=== PATIENT | female | born 1955 | race Caucasian/White ===

== ENCOUNTER 2020-05-08 16:51 | Emergency (ER) | payer MEDICARE ==
[2020-05-08] MEDS ORDERED: Sodium Chloride 0.9% 1000 ML 1,000 ML IV SCH (17:15)
[2020-05-08] MEDS ORDERED: Sodium Chloride 0.9% 1000 ML 1,000 ML ONE (17:22)
--- NOTE | 2020-05-08 17:31 | ERPHSYRPT ---
- History of Present Illness Time Seen by Provider: 05/08/20 17:05 Historian: patient Exam Limitations: no limitations Patient Subjective Stated Complaint: pt to ER with complaints of weakness, cough, possible dehydration because of flakey skin, abdominal pain once a day-s harp pain, x [address] varner office yesterday and was told to come to ER. Triage Nursing Assessment: pt A&Ox4. to ER in wheelchair. pt tearful. pt skin pwd. Physician History: Patient is a 64-year-old female presents to our ED with complaints of generalized weakness, possible dehydration cough and sharp intermittent periumbilical abdominal pain. Patient has been experiencing intermittent abdominal pain for 2 years. However pain is been constant over the past 3 weeks. She has not seen anybody due to cost of healthcare. Patient called her primary care doctor's office, Dr. Varner who advised patient to come to our ED for an evaluation. No associated fever. No trauma. No vomiting. No diarrhea. No rash. Symptoms are moderate in intensity. No specific worsening or improving factors. Patient voices no other complaints or concerns at this time. Timing/Duration: week(s) (We weeks) Activities at Onset: none Quality: cramping Abdominal Pain Onset Location: periumbilical Pain Radiation: no radiation Severity of Pain-Max: moderate Severity of Pain-Current: mild Modifying Factors: Improves With: nothing Associated Symptoms: loss of appetite, nausea, No diaphoresis, No diarrhea, No fever/chills, No headache, No neck pain, No shortness of breath, No vomiting Previous symptoms: no prior history Allergies/Adverse Reactions: No Known Drug Allergies Allergy (Unverified 05/08/20 17:14) Home Medications: Gabapentin 600 mg PO TID 05/08/20 [History] Hydrocodone Bit/Acetaminophen [Tenmile 10-325 Tablet] 1 tab PO TID 05/08/20 [History] Ropinirole HCl 0.5 mg [Requip 0.5 MG] 1 tab PO BID 05/08/20 [History] clonazePAM [Klonopin] 1 tab PO TID 05/08/20 [History] Hx Tetanus, Diphtheria Vaccination/Date Given: No Hx Influenza Vaccination/Date Given: No Hx Pneumococcal Vaccination/Date Given: No Immunizations Up to Date: Yes Travel Risk - International Travel Have you traveled outside of the country in past 3 weeks: No - Coronavirus Screening Are you exhibiting any of the following symptoms?: No Close contact with a COVID-19 positive Pt in past 14-21 Days: No - Review of Systems Constitutional: No Symptoms, No Fever, No Chills Eyes: No Symptoms Ears, Nose, & Throat: No Symptoms Respiratory: No Symptoms, No Cough, No Dyspnea Cardiac: No Symptoms, No Chest Pain, No Edema, No Syncope Abdominal/Gastrointestinal: No Symptoms, No Abdominal Pain, No Nausea, No Vomiting, No Diarrhea Genitourinary Symptoms: No Symptoms, No Dysuria Musculoskeletal: No Symptoms, No Back Pain, No Neck Pain Skin: No Symptoms, No Rash Neurological: No Symptoms, No Dizziness, No Focal Weakness, No Sensory Changes Psychological: No Symptoms Endocrine: No Symptoms Hematologic/Lymphatic: No Symptoms Immunological/Allergic: No Symptoms All Other Systems: Reviewed and Negative - Past Medical History Pertinent Past Medical History: Yes Cardiac History: Hypertension Respiratory History: COPD GI Medical History: Diverticulitis Psycho-Social History: Anxiety, Depression - Past Surgical History Past Surgical History: Yes Musculoskeletal: Orthopedic Surgery Female Surgical History: Hysterectomy - Social History Smoking Status: Current every day smoker How long have you smoked: 30 years Exposure to second hand smoke: Yes Drug Use: none Patient Lives Alone: No - Female History Hx Now: No - Nursing Vital Signs Nursing Vital Signs: Initial Vital Signs Temperature 98.1 F 05/08/20 17:01 Pulse Rate 115 H 05/08/20 17:01 Respiratory Rate 18 05/08/20 17:01 Blood Pressure 159/100 05/08/20 17:01 O2 Sat by Pulse Oximetry 96 05/08/20 17:01 Pain Scale Pain Intensity 0 - Physical Exam General Appearance: no apparent distress, alert Eye Exam: PERRL/EOMI, eyes nml inspection Ears, Nose, Throat Exam: normal ENT inspection, pharynx normal, moist mucous membranes Neck Exam: normal inspection, non-tender, supple, full range of motion Respiratory Exam: normal breath sounds, lungs clear, No respiratory distress Cardiovascular Exam: regular rate/rhythm, normal heart sounds Gastrointestinal/Abdomen Exam: soft, tenderness (Mild periumbilical tenderness.), No mass, No guarding, No pulsatile mass, No rebound, No organomegaly Back Exam: normal inspection, normal range of motion, No CVA tenderness, No vertebral tenderness Extremity Exam: normal inspection, normal range of motion, pelvis stable Neurologic Exam: alert, oriented x 3, cooperative, normal mood/affect, nml cerebellar function, sensation nml, No motor deficits Skin Exam: normal color, warm, dry SpO2 Interpretation: normal SpO2: 96 O2 Delivery: Room Air - Course Nursing assessment & vital signs reviewed: Yes EKG Interpreted by Me: RATE ([id number]), Sinus Rhythm, NORMAL AXIS, NORMAL INTERVALS - Radiology Exams Chest X-ray Interpretation: Interpreted by me (No infiltrate or consolidation. No pneumothorax. No pleural effusion. Normal bony thorax. Normal cardiac silhouette. Negative chest x-ray.) Ordered Tests: Active Orders 24 hr Category Date Time Status Banana Loader STAT Care 05/08/20 18:50 Active EKG-ER Only STAT Care 05/08/20 17:18 Active IV Insertion STAT Care 05/08/20 17:15 Active POCT Glucose Check STAT Care 05/08/20 17:18 Active ABDOMEN AND PELVIS W CONTRAST [CT] Stat Exams 05/08/20 17:15 Taken CHEST 1 VIEW (PORTABLE) Stat Exams 05/08/20 17:32 Taken CBC W DIFF Stat Lab 05/08/20 17:30 Completed CMP Stat Lab 05/08/20 17:30 Completed LIPASE Stat Lab 05/08/20 17:30 Completed MAGNESIUM Stat Lab 05/08/20 18:00 Completed POCT GLUCOSE Stat Lab 05/08/20 17:15 Completed TROPONIN Q3H Lab 05/08/20 17:30 Completed TROPONIN Q3H Lab 05/08/20 20:15 Ordered TROPONIN Q3H Lab 05/08/20 23:15 Ordered TROPONIN Q3H Lab 05/09/20 02:15 Ordered TROPONIN Q3H Lab 05/09/20 05:15 Ordered UA W/RFX UR CULTURE Stat Lab 05/08/20 18:00 Completed Medication Summary Generic Name Dose Route Start Last Admin Trade Name Freq PRN Reason Stop Dose Admin Sodium Chloride 1,000 mls @ 100 mls/hr 05/08/20 17:15 05/08/20 17:23 Sodium Chloride 0.9% 1000 Ml IV 06/07/20 17:14 100 mls/hr .Q10H KIM Administration Discontinued Medications Generic Name Dose Route Start Last Admin Trade Name Freq PRN Reason Stop Dose Admin Potassium Chloride 40 meq 05/08/20 18:27 05/08/20 19:36 Klor Con 10 Meq PO 05/08/20 18:28 40 meq STAT ONE Administration Potassium Chloride Confirm 05/08/20 19:35 Klor Con 10 Meq Administered 05/08/20 19:36 Dose 40 meq PO .STK-MED ONE Lab/Rad Data: Laboratory Result Diagrams 05/08/20 17:30 05/08/20 17:30 Laboratory Results 05/08/20 05/08/20 05/08/20 Range/Units 18:00 18:00 17:30 WBC (4.0-10.5) K/mm3 RBC (4.1-5.4) M/mm3 Hgb (12.0-16.0) gm/dl Hct (35-47) % MCV (78-100) fl MCH (26-32) pg MCHC (32-36) g/dl RDW (11.5-14.0) % Plt Count (150-450) K/mm3 MPV (7.5-11.0) fl Gran % (36.0-66.0) % Eos # (Auto) (0-0.5) Absolute Lymphs (auto) (1.0-4.6) Absolute Monos (auto) (0.0-1.3) Lymphocytes % (24.0-44.0) % Monocytes % (0.0-12.0) % Eosinophils % (0.00-5.0) % Basophils % (0.0-0.4) % Absolute Granulocytes (1.4-6.9) Basophils # (0-0.4) Sodium 132 L (137-145) mmol/L Potassium 2.9 L* (3.5-5.1) mmol/L Chloride 95 L (98-107) mmol/L Carbon Dioxide 28 (22-30) mmol/L Anion Gap 11.6 (5-15) MEQ/L BUN 5 L (7-17) mg/dL Creatinine 0.63 (0.52-1.04) mg/dL Estimated GFR > 60.0 ML/MIN Glucose 167 H (74-106) mg/dL POC Glucometer (74 to 106) mg/dL Calcium 9.5 (8.4-10.2) mg/dL Magnesium 2.0 (1.6-2.3) mg/dL Total Bilirubin 0.60 (0.2-1.3) mg/dL AST 30 (14-36) U/L ALT 19 (0-35) U/L Alkaline Phosphatase 75 (38-126) U/L Troponin I (0.000-0.034) ng/mL Serum Total Protein 7.8 (6.3-8.2) g/dL Albumin 4.1 (3.5-5.0) g/dL Lipase 53 (23-300) U/L Urine Color YELLOW (YELLOW) Urine Appearance CLEAR (CLEAR) Urine pH 6.0 (5-6) Ur Specific [place] 1.004 (1.005-1.025) Urine Protein NEGATIVE (Negative) Urine Ketones NEGATIVE (NEGATIVE) Urine Blood SMALL (0-5) Alan/ul Urine Nitrite NEGATIVE (NEGATIVE) Urine Bilirubin NEGATIVE (NEGATIVE) Urine Urobilinogen NEGATIVE (0-1) mg/dL Ur Leukocyte Esterase NEGATIVE (NEGATIVE) Urine WBC (Auto) 3-5 (0-5) /HPF Urine RBC (Auto) NONE (0-2) /HPF U Epithel Cells (Auto) NONE (FEW) /HPF Urine Bacteria (Auto) NONE SEEN (NEGATIVE) /HPF Urine Mucus (Auto) SLIGHT (NEGATIVE) /HPF Urine Culture Reflexed NO (NO) Urine Glucose NEGATIVE (NEGATIVE) mg/dL 05/08/20 05/08/20 05/08/20 Range/Units 17:30 17:30 17:15 WBC 7.2 (4.0-10.5) K/mm3 RBC 4.62 (4.1-5.4) M/mm3 Hgb 13.9 (12.0-16.0) gm/dl Hct 41.3 (35-47) % MCV 89.4 (78-100) fl MCH 30.1 (26-32) pg MCHC 33.7 (32-36) g/dl RDW 13.3 (11.5-14.0) % Plt Count 285 (150-450) K/mm3 MPV 10.2 (7.5-11.0) fl Gran % 48.7 (36.0-66.0) % Eos # (Auto) 0.48 (0-0.5) Absolute Lymphs (auto) 2.57 (1.0-4.6) Absolute Monos (auto) 0.62 (0.0-1.3) Lymphocytes % 35.5 (24.0-44.0) % Monocytes % 8.6 (0.0-12.0) % Eosinophils % 6.6 H (0.00-5.0) % Basophils % 0.6 (0.0-0.4) % Absolute Granulocytes 3.52 (1.4-6.9) Basophils # 0.04 (0-0.4) Sodium (137-145) mmol/L Potassium (3.5-5.1) mmol/L Chloride (98-107) mmol/L Carbon Dioxide (22-30) mmol/L Anion Gap (5-15) MEQ/L BUN (7-17) mg/dL Creatinine (0.52-1.04) mg/dL Estimated GFR ML/MIN Glucose (74-106) mg/dL POC Glucometer 161 H (74 to 106) mg/dL Calcium (8.4-10.2) mg/dL Magnesium (1.6-2.3) mg/dL Total Bilirubin (0.2-1.3) mg/dL AST (14-36) U/L ALT (0-35) U/L Alkaline Phosphatase (38-126) U/L Troponin I < 0.012 (0.000-0.034) ng/mL Serum Total Protein (6.3-8.2) g/dL Albumin (3.5-5.0) g/dL Lipase (23-300) U/L Urine Color (YELLOW) Urine Appearance (CLEAR) Urine pH (5-6) Ur Specific [place] (1.005-1.025) Urine Protein (Negative) Urine Ketones (NEGATIVE) Urine Blood (0-5) Alan/ul Urine Nitrite (NEGATIVE) Urine Bilirubin (NEGATIVE) Urine Urobilinogen (0-1) mg/dL Ur Leukocyte Esterase (NEGATIVE) Urine WBC (Auto) (0-5) /HPF Urine RBC (Auto) (0-2) /HPF U Epithel Cells (Auto) (FEW) /HPF Urine Bacteria (Auto) (NEGATIVE) /HPF Urine Mucus (Auto) (NEGATIVE) /HPF Urine Culture Reflexed (NO) Urine Glucose (NEGATIVE) mg/dL - Progress Progress: improved Progress Note: 05/08/20 20:[address] Varner who feels patient will require a urologist. We considered admitting patient here and arranging urology follow-up as an outpatient however patient has a high likelihood of being hostile follow-up. Charly young states that she does not have the funds to see doctors so she chooses not to visit with her doctors. We will transfer patient to [facility]. Case discussed with who accepts transfer and will arrange for urology consultation. Plan of care discussed with patient. She agrees to transfer to [facility] for further evaluation and treatment. Discussed with Dr.: Pam Will see patient in: other (Case discussed with Dr. Varner. Patient will require urology and probably a cystoscopy. Per Dr. Varner we will transfer patient for urology services.) Counseled pt/family regarding: lab results, diagnosis, need for follow-up, rad results, smoking cessation - Departure Departure Disposition: Home Clinical Impression: Tachycardia, Hypokalemia, Hematuria, Bladder mass, Gallstones, Hepatomegaly, Hepatic cyst, Splenomegaly, Diverticulosis, Generalized weakness Condition: Stable Critical Care Time: No Referrals: DOCTOR,NO FAMILY [Primary Care Provider] -
[2020-05-08 18:03] LABS: Absolute Neutrophil Ct (ANC) 3.52 (1.4-6.9); BASOPHIL % 0.6 % (0.0-0.4); Basophil (Absolute #) 0.04 (0-0.4); Eosinophil % 6.6 % (0.00-5.0); Eosinophil (Absolute #) 0.48 (0-0.5); Hematocrit 41.3 % (35-47); Hemoglobin 13.9 gm/dl (12.0-16.0); Lymphocyte (Absolute #) 2.57 (1.0-4.6); Lymphocytes % 35.5 % (24.0-44.0); Mean Cell Volume 89.4 fl (78-100); Mean Corpuscular Hemoglobin 30.1 pg (26-32); Mean Corpuscular Hgb Concent. 33.7 g/dl (32-36); Mean Platelet Volume 10.2 fl (7.5-11.0); Monocyte (Absolute #) 0.62 (0.0-1.3); Monocytes % 8.6 % (0.0-12.0); Neutrophil % 48.7 % (36.0-66.0); Platelet Count 285 K/mm3 (150-450); Red Blood Count 4.62 M/mm3 (4.1-5.4); Red Cell Distribution Width 13.3 % (11.5-14.0); White Blood Count 7.2 K/mm3 (4.0-10.5)
[2020-05-08 18:14] LABS: ALBUMIN 4.1 g/dL (3.5-5.0); ALKALINE PHOSPHATASE 75 U/L (38-126); ANION GAP 11.6 MEQ/L (5-15); BLOOD UREA NITROGEN 5 mg/dL (7-17); CHLORIDE 95 mmol/L (98-107); Calcium 9.5 mg/dL (8.4-10.2); Carbon Dioxide 28 mmol/L (22-30); Creatinine 1 0.63 mg/dL (0.52-1.04); EST GLOMERULAR FILTRATION RATE > 60.0 ML/MIN; Glucose 167 mg/dL (74-106); LIPASE 53 U/L (23-300); SGOT/AST 30 U/L (14-36); SGPT/ALT 19 U/L (0-35); SODIUM 132 mmol/L (137-145); Total Protein 7.8 g/dL (6.3-8.2)
[2020-05-08 18:17] LABS: Appearance CLEAR (CLEAR); Bilirubin NEGATIVE (NEGATIVE); Blood SMALL Ery/ul (0-5); Glucose NEGATIVE (NEGATIVE); Ketones NEGATIVE (NEGATIVE); Leukocyte Esterase NEGATIVE (NEGATIVE); Mucus SLIGHT /HPF (NEGATIVE); Nitrite NEGATIVE (NEGATIVE); Protein,Urine Dip NEGATIVE (Negative); Specific Gravity 1.004 (1.005-1.025); Urobilinogen NEGATIVE mg/dL (0-1)
[2020-05-08 18:19] LABS: Potassium 2.9 mmol/L (3.5-5.1)
[2020-05-08 18:20] LABS: Bacteria NONE SEEN /HPF (NEGATIVE)
[2020-05-08] MEDS ORDERED: Klor Con 10 MEQ PO ONE ×2 (18:27→19:35)
[2020-05-08 19:53] VITALS: BP 171/87; PULSE 96
[2020-05-08 20:14] VITALS: O2SAT 96
--- NOTE | 2020-05-09 08:47 | XRAY ---
Indication: Abdomen pain and nausea. Multiple contiguous axial images obtained through the abdomen and pelvis using 80 cc Isovue 370 contrast only. Comparison: None Lung bases demonstrates mild bibasilar dependent atelectasis and tiny right costophrenic angle calcified granuloma. Heart is not enlarged. Noncontrasted stomach and bowel loops appear nonobstructed. Normal appendix. Minimal sigmoid diverticulosis. No free fluid/air. Two 1.5 cm gallstones. Mild fatty hepatomegaly measuring 20.8 cm with a 1.4 cm left lobe cyst. 16.7 cm splenomegaly. A few hepatic/splenic calcified granulomas. Both kidneys enhance and excrete. Posterior left urinary bladder demonstrates a 1 cm soft tissue mass. Remaining pancreas, adrenal glands, kidneys, and ureters appear unremarkable. Mild scattered aortoiliac calcifications without AAA. No pathologic retroperitoneal lymphadenopathy. Osseous structures intact with mild/moderate degenerative changes throughout the lumbar spine. Impression: 1. 1 cm urinary bladder or soft tissue mass. Malignancy is a primary concern. Direct cystoscopy may yield further information. 2. Cholelithiasis. Gallbladder sonogram may yield further information. 3. Incidental fatty hepatomegaly, hepatic cyst, splenomegaly, and old granulomatous disease.
--- NOTE | 2020-05-09 08:48 | XRAY ---
Indication: Abdomen pain and fatigue. Comparison: None Portable chest demonstrates normal heart and lungs with tiny right costophrenic angle calcified granuloma. Bony thorax intact with mild osteopenia, minimal degenerative changes, and minimal dextroscoliosis. Impression: Nonacute chest with chronic features.
== END 2020-05-08 20:16 | disposition short-term general hospital (02) ==
LOC: ED 16:51
DX: R00.0 Tachycardia, unspecified (principal); E87.6 Hypokalemia; R31.9 Hematuria, unspecified; N32.9 Bladder disorder, unspecified; K80.80 Other cholelithiasis without obstruction; B27.99 Infectious mononucleosis, unspecified with other complication; K76.89 Other specified diseases of liver; R16.1 Splenomegaly, not elsewhere classified; K57.92 Diverticulitis of intestine, part unspecified, without perforation or abscess without bleeding; R53.1 Weakness; Z79.899 Other long term (current) drug therapy
CPT/HCPCS: 36000; 36415; 71045; 74177; 80053; 81001; 82962; 83690; 83735; 84484; 85025; 93005; 93041; 96360; 99285; A9270-GY

== ENCOUNTER 2024-11-03 08:06 | Day surgery (SDC) | payer MEDICARE, OTHER ==
[2024-11-03] MEDS ORDERED: LIDOCAINE HCL 2% 100 MG/5 ML IJ ONE (08:07)
[2024-11-03] MEDS ORDERED: methylPREDNISolone acetate IM ONE (08:07)
[2024-11-03] MEDS ORDERED: propofoL IV ONE ×2 (09:52→10:06)
--- NOTE | 2024-11-03 11:05 | XRAY ---
Indication: Bilateral L4-S1 MBB. Intraoperative fluoroscopy provided for 17 seconds. Single digital spot image submitted for interpretation demonstrates posterior needle tips projecting over expected left and right L4-S1 nerve roots. Correlate with intraoperative findings/report.
--- NOTE | 2024-11-03 11:09 | XRAY ---
17 seconds of fluoroscopy was used in surgery for a bilateral L4-S1 MBB.
== END 2024-11-03 10:38 | disposition home or self-care (01) ==
LOC: SDC-PAIN 08:06
PROVIDERS: ATTEND Psychiatry & Neurology Pain Medicine
DX: M47.816 Spondylosis without myelopathy or radiculopathy, lumbar region (principal); E11.9 Type 2 diabetes mellitus without complications
CPT/HCPCS: 64493; 64494; 72020; 77002; 82947; J1010; J2704

== ENCOUNTER 2024-12-08 09:01 | Day surgery (SDC) | payer MEDICARE, OTHER ==
[2024-12-08] MEDS ORDERED: Depo-Medrol 40 MG/ML IM ONE (09:02)
[2024-12-08] MEDS ORDERED: BUPIVACAINE 0.5% VIAL IJ ONE (09:02)
[2024-12-08] MEDS ORDERED: Lactated Ringers 500 ML IV ONE (09:20)
[2024-12-08] MEDS ORDERED: propofoL IV ONE (10:47)
--- NOTE | 2024-12-08 19:25 | XRAY ---
13 seconds of fluoroscopy was used in surgery for a bilateral L4-S1 MBB.
--- NOTE | 2024-12-08 19:29 | XRAY ---
Indication: Bilateral L4-S1 MBB. Intraoperative fluoroscopy provided for 13 seconds. Single digital spot image submitted for interpretation demonstrates posterior needle tips projecting over expected left and right L4-S1 nerve roots. Correlate with intraoperative findings/report.
== END 2024-12-08 11:12 | disposition home or self-care (01) ==
LOC: SDC-PAIN 09:01
PROVIDERS: ATTEND Psychiatry & Neurology Pain Medicine
DX: M47.817 Spondylosis without myelopathy or radiculopathy, lumbosacral region (principal); E11.9 Type 2 diabetes mellitus without complications
CPT/HCPCS: 64493; 64494; 72020; 82947; J2704